=== PATIENT | female | born 1945 | race Caucasian/White ===

== ENCOUNTER 2016-11-23 13:13 | Inpatient (IN) ==
--- NOTE | 2016-11-22 21:28 | Discharge Summary ---
<Raquel Henry - Last Filed: 11/22/16 21:26> Date of Encounter: 11/22/16 - Discharge Diagnosis (1) Arthritis of knee, left Priority: Primary Status: Acute (2) HTN (hypertension) Priority: Secondary Status: Chronic Qualifiers: Hypertension type: essential hypertension Qualified Code(s): I10 - Essential (primary) hypertension - Discharge Medications Home Medications: Aspirin 81 mg PO DAILY 05/18/16 [History] Calcium/Magnesium/Vit D3 [Calcium 500 mg Tablet] 1 each PO DAILY 05/18/16 [ History] Cholecalciferol (D-3) [Vitamin D] 1,000 unit PO DAILY 05/18/16 [History] Irbesartan [Avapro] 150 mg PO DAILY 05/18/16 [History] Aspirin Enteric Coated [Aspirin EC] 325 mg PO DAILY #21 tablet.dr 11/22/16 [Rx] OxyCODONE Immed Rel [Roxicodone 5 MG] 5 - 10 mg PO Q6HR PRN #40 tablet 11/22/16 [Rx] Hydrochlorothiazide 25 mg PO DAILY 11/23/16 [History] Multivits Min/Iron/FA/Herb#186 [Hair, Skin and Nails Caplet] 1 each PO DAILY [History] Allergies/Adverse Reactions: Allergies nitrofurantoin [From Macrobid] Adverse Reaction (Verified 11/23/16 14:07) Vomiting rofecoxib [From Vioxx] Adverse Reaction (Verified 11/23/16 14:07) Nausea Primary care physician: Joe Gaona Jr, MD - Patient Status Disposition: Transfer Inpatient Rehab Fac Condition: Good - Discharge Instructions Follow Up With: Elijah Nails MD [Partnered Physician] - 12/22/16 10:05 am Raquel Henry, PAC [Physician Clinical Informatics Physician] - 12/03/16 11:15 am Joe Gaona Jr, MD [Primary Care Provider] - Additional Instructions: Discharge Instructions: Total Knee Replacement Please call [facility] ([phone]), your Primary Care Physician, or report to the Emergency Room if you have any of the following symptoms: Nausea, vomiting, fever greater that 101.5, swelling, chest pain, shortness of breath, increased pain/redness/drainage/odor for your incision site, numbness/ tingling, or any other concerning symptoms. ACTIVITY:Weight-bearing as tolerated. You may progress off support (crutches or walker) as tolerated. MEDICATIONS: Upon discharge resume your home medications. Take all the medications as prescribed. Take a stool softener if taking narcotic pain medications. Stool softeners are only effective if you drink enough fluids. Drink 6-8 glass of water or fluids a day, unless this is not allowed for another health problem. Despite using stool softeners, if you haven't had a bowel movement in 3 days, please switch to a gentle laxative. Gentle laxatives are sold over the counter. You should have a bowel movement within 24 hours, if not call the office. You will be discharged from the hospital with a prescription for pain medication. You are encouraged to decrease the use of narcotic pain medication as tolerated. Should you require a refill, please call the office. [facility] prescribes narcotic pain medication for only 4-6 weeks after surgery. If you require pain medication beyond this time period, you may be referred to your Primary Care Physician or to the Pain Clinic for further evaluation. Plan ahead for refills on pain medication as many narcotics either need to be picked up at the office or mailed. It is best to call 48-72 hours in advance of needing a prescription refill so you don't run out of medication. To help control the post-operative pain, you may take NSAIDs (Aleve,Advil, Motrin, Ibuprofen, Naprosyn) or Tylenol as prescribed on the bottle in addition to the pain medication. ANTICOAGULATION (blood thinners): Continue your Aspirin, Lovenox or Coumadin as prescribed to help prevent a blood clot in the leg or in the lungs. As long as your incision remains dry and you tolerate the NSAIDs (Aleve, Advil, Motrin, ibuprofen, naprosyn), it is OK to use the NSAIDS while you are taking your anticoagulation medication. Should your incision start to drain, stop the NSAID and contact our office. Common symptoms of blood clot in the legs include: localized pain, swelling, calf tenderness, redness or discoloration of the skin. Blood clot in the lung symptoms include: shortness of breath, rapid pulse, sweating, and chest pain that worsens with deep breathing, coughing up blood, lightheadedness, feelings of anxiety. If you experience any of these symptoms notify your physician immediately, go to the emergency room, or if having trouble breathing, call 911. WOUND CARE: Leave the dressing on for 7 to 10days. You may change the dressing if it becomes saturated greater than 50%. Do not get the dressing wet at anytime. Wash your hands with antibacterial soap, rinse and dry prior to any wound care. If you have teto the visiting nurse or rehab facility can remove the stapes 10-14 days after surgery and place steri-strips across the wound. Leave the steri-strips in place until they fall off on their won. You may let water from the shower run on top of the steri-strips. If you do not have a visiting nurse or rehab facility, you will need to return to the office at 10-14 days for the teto to be removed. If you have itching or redness around the dressing call the office. FOLLOW-UP: Please follow up with your surgeon in the orthopedic clinic in 4 weeks from the day of surgery. If you have teto that need to be removed, you will need to come back to the office in 10-14 days from the day of surgery. - Hospital Course Hospital course: Ms. Baez is a 71 year old female - Time Spent with Patient Total time spent providing and/or coordinating discharge services: <Elijah Nails - Last Filed: 11/26/16 07:44> Date of Encounter: 11/26/16 Time of Encounter: 07:43 - Discharge Diagnosis (1) HTN (hypertension) Priority: Secondary Status: Chronic Qualifiers: Hypertension type: essential hypertension Qualified Code(s): I10 - Essential (primary) hypertension (2) Acute blood loss anemia Priority: Primary Status: Acute (3) Arthritis of right knee Priority: Primary Status: Acute Primary care physician: Joe Gaona Jr, MD - Patient Status Functional capacity at discharge: uses cane/walker Overall status at discharge: patient is progressing back to baseline - Hospital Course Hospital course: Ms. Baez is a 71 year old female The patient had an uneventful postoperative course. They received antibiotics and physical therapy and were discharged in stable condition. There will follow -up in the office in 2 weeks. Aspirin DVT prophylaxis - Time Spent with Patient Total time spent providing and/or coordinating discharge services:
[2016-11-23] MEDS ORDERED: CeFAZolin Pre 2,000 MG/100 ML 2,000 MG/100 ML BAG IVPB ONE (13:35)
[2016-11-23] MEDS ORDERED: Lidocaine -MPF 1% 2 ML VIAL ID ONE (13:35)
[2016-11-23] MEDS ORDERED: Ringers Solution, Lactated 1,000 ML IVC SCH ×2 (13:45→18:24)
[2016-11-23] MEDS ORDERED: Gabapentin 300 MG CAPSULE PO ONE (14:00)
[2016-11-23] MEDS ORDERED: Famotidine 20 MG/2 ML VIAL IVP ONE (14:00)
--- NOTE | 2016-11-23 14:08 | History & Physical Report ---
Date of Encounter: 11/23/16 Time of Encounter: 14:07 24 Hour HP Update - Instructions Instructions: If the History and Physical is less than 30 days old and was completed prior to A.M. admission and or procedure and has NOT been updated on calendar day of procedure please complete this update prior to performing procedure. - Update Patient reports changes in Medical Condition: No Changes in examination, assessment, or condition: No Changes in Medication: No Preop tests/diagnostics Reviewed: Yes Surgery Remains Indicated: Yes Consent for Planned Operative Procedure(s) Verified: Yes - Pre-Operative Checklist Preoperative Checklist Indicated: No Prophylactic Antibiotic Ordered: Yes Is VTE Prophylaxis Indicated?: Yes
[2016-11-23] MEDS ORDERED: *HR* Midazolam HCl 2 MG/2 ML VIAL ONE (14:23)
[2016-11-23] MEDS ORDERED: *HR* FentaNYL (PF) 100 MCG/2 ML VIAL ONE (14:23)
[2016-11-23] MEDS ORDERED: *HR* Propofol 200 MG/20 ML VIAL IVP ONE (14:23)
[2016-11-23] MEDS ORDERED: Lidocaine -MPF 2% 2 ML VIAL ONE (14:24)
--- NOTE | 2016-11-23 14:37 | Anesthesia Evaluation PreOp ---
Date of Encounter: 11/23/16 Time of Encounter: 14:30 - Past History Planned Operation: Rt Total Knee Replacement Cardiac History: HTN, Hyperlipidemia Pulmonary History: Denies Any Significant HX INFORMATION SYSTEMS ADMINISTRATOR History: Denies Any Significant HX Other Medical History: Denies Any Significant HX Anesthesia History: No Prior Anesthetic Complications Alcohol Use: none Drug use: none Medications and Allergies Aspirin 81 mg PO DAILY 05/18/16 [History] Calcium/Magnesium/Vit D3 [Calcium 500 mg Tablet] 1 each PO DAILY 05/18/16 [ History] Cholecalciferol (D-3) [Vitamin D] 1,000 unit PO DAILY 05/18/16 [History] Irbesartan [Avapro] 150 mg PO DAILY 05/18/16 [History] Aspirin Enteric Coated [Aspirin EC] 325 mg PO DAILY #21 tablet. 11/22/16 [Rx] OxyCODONE Immed Rel [Roxicodone 5 MG] 5 - 10 mg PO Q6HR PRN #40 tablet 11/22/16 [Rx] Hydrochlorothiazide 25 mg PO DAILY 11/23/16 [History] Multivits Min/Iron/FA/Herb#186 [Hair, Skin & Nails Caplet] 1 each PO DAILY 11/23 [History] Allergies nitrofurantoin [From Macrobid] Adverse Reaction (Verified 11/23/16 14:07) Vomiting rofecoxib [From Vioxx] Adverse Reaction (Verified 11/23/16 14:07) Nausea - Meds/Allergy Pre-op Review Medications Reviewed: Yes Allergies Reviewed: Yes Beta Blockers on Current Med List: No Anesthesia Results - Labs Laboratory Tests 11/09/16 11/09/16 12:35 12:35 Hgb 13.7 Hct 40.1 Plt Count 298 Sodium 137 Potassium 3.8 BUN 14 Creatinine 0.72 - Imaging EKG: report reviewed (SR) Anesthesia Exam O2 Sat Height 1.6 m Height 1.6 m Height 1.6 m Weight 78.131 kg Weight 78.131 kg Weight 78.131 kg O2 Sat by Pulse Oximetry 97 Vital Signs Temp Pulse Resp BP Pulse Ox 98.0 F 69 18 163/71 97 11/23/16 13:30 11/23/16 13:30 11/23/16 13:30 11/23/16 13:30 11/23/16 13:30 Height: 5'3 Weight: 172 lbs NPO (# of Hours): MN Pain Scale: 0 - HEENT Pupil (Motor): Pupils equal, EOMI Mallampati: II Teeth: Normal Oral Opening: Greater than 3 - INFORMATION SYSTEMS ADMINISTRATOR LOC: Oriented INFORMATION SYSTEMS ADMINISTRATOR Motor: Normal RUE, Normal LUE, Normal RLE, Normal LLE, Normal Face INFORMATION SYSTEMS ADMINISTRATOR Sensory: Normal: RUE, LUE, RLE, LLE, Face - Cardiac Rhythm: Regular Murmur: None JVD: No Carotid Bruit: No - Pulmonary Breath Sounds: bilateral Clear Respiratory Effort: Symmetrical Anesthesia Assess/Plan ASA Score: 2 Modified Eden Scale for Level of Consciousness: Cooperative, oriented, and tranquil Anesthetic Plan: General, Regional Monitoring Plan: Standard Monitors Recovery Plan: PACU (Discussed GA and RA, agrees to proceed)
[2016-11-23] MEDS ORDERED: Tetracaine/PF 20 MG/2 ML AMPUL ONE (15:11)
[2016-11-23] MEDS ORDERED: ROPIVACAINE HCL/PF 0.5% 30 ML VIAL ONE (15:11)
[2016-11-23] MEDS ORDERED: Bupivacaine/Clonidine Syringe 1 EACH SYRINGE ONE (15:12)
--- NOTE | 2016-11-23 15:28 | Anesthesia Procedures ---
Date of Encounter: 11/23/16 Time of Encounter: 14:35 Procedures: Anesthesia - Nerve Block Procedure Date: 11/23/16 Time: 15:15 Pre-op Diagnosis: Rt Knee Arthropathy Surgical Procedure: Rt TKA Checklist: Correct Patient Identifier Correct side: Right Blood Thinner: No Monitor Applied: EKG, BP, Pulse Oximetry Supplemental Oxygen via Nasal Cannula (L/min): 2 Sedation: Versed (mg): 2 Sedation: Fentanyl (mcg): 100 Indication: Post Op Analgesia Pre-op Neuro Deficits: No Block Type: Femoral Catheter placed: No Depth at skin (cm): 3 Sterile Technique: Yes Ultrasound used: Yes Anatomy identified: Yes Visual spread of Local: Yes Neuro Stimulation: Yes Nerve Stimulator Range: >0.4 - 0.6 mA Blood on Needle Aspiration: No Smooth Injection of Local: Yes Pain with Injection of Local: No Prep: Chlorhexadine Needle: 22 x 50 mm Stimuplex Local: Tetracaine (40), Ropivacaine (0.5%) Volume (cc): 30 Number of Attempts: 1 Complications: None/effective block Vitals: Vital Signs/O2 Sat/Glucose, Most Current Temp Pulse Resp BP Pulse Ox 11/23/16 15:21 74 18 140/56 97 11/23/16 13:30 98.0 F 69 18 163/71 97
--- NOTE | 2016-11-23 15:42 | Orthopedic Operative Note ---
Date of procedure: 11/23/16 Pre-op diagnosis: Right knee arthritis Post-op diagnosis: same Procedure: Procedure: Right Total knee replacement Estimated blood loss: 200 cc Hardware: Arthrex Femur: 5 Tibia: 3 PS insert: 8 Patella: 34 Exam Under anesthesia: Full flexion full extension no instability Procedural Notes: Grade 3 arthritic changes medial compartment patellofemoral joint. Operative procedure: The patient was brought to the operating room and placed on the operating room table. After general anesthesia was administered the operative knee was examined. Findings were noted in the exam under anesthesia. The operative extremity was prepped and draped in sterile surgical fashion. The patient received IV antibiotics prior to skin incision. A standard midline incision was made centered over the patella. The incision was made through the skin and subcutaneous tissue. A medial parapatellar tendon approach was performed. Care was taken to preserve tissue along the medial aspect of the patella. And to protect the patella tendon. The deep MCL was released off the medial tibia. The infra patella fat pad was excised. Knee was brought into flexion. Patient noted to have grade 3 arthritic changes medial compartment and patellofemoral joint. The entry hole was made for the intramedullary femoral guide. The guide was seated in 6 degrees of valgus. Anterior cut was made followed by the distal cut. The ACL the PCL the medial and the lateral menisci were excised. The tibia was subluxed forward. The entry hole was made for the intramedullary tibial guide. Guide was seated to resect 2 mm off the more abnormal side. The knee was brought into flexion the distal femur was sized to a 5. The femoral guide was seated, the anterior cut was made followed by the posterior condylar cut, followed by the chamfer cuts. The finishing guide was seated the box cut was made and the lug holes were drilled. The tibia was sized to a 4, the tibial tray was seated and prepared with the large drill followed by the fin cutter. Trial reduction revealed full extension no varus valgus instability with the appropriate 8 PS Michelle. The patella was everted and cut was made at the level of the insertion of the quadriceps and patella tendon. The patella was sized to a 34 the guide was seated and the lug holes are drilled. Trial reduction revealed excellent patella tracking. All trial components were removed all bony surfaces were irrigated. The tibia was cemented first followed by the femur. The 8 PS Michelle was seated and the knee was brought into full extension. The patella was cemented and held in place with the patellar holding clamp. After the cement had hardened, the knee sat for 2 minutes with a Betadine saline solution. The knee was then irrigated out with 2 L of pulse irrigation. The extensor mechanism was closed with #2 FiberWire suture and #2 PDS suture. The subcutaneous tissue was then irrigated and closed deep with #1 PDS suture superficially with 0 PDS suture and skin was closed with skin teto. The patient was then placed in a sterile dressing and a postoperative brace extubated and transferred to recovery room in stable condition. Anesthesia: REBECCA Surgeon: Elijah Nails Pulling Unit Floorhand: Raquel Henry Condition: stable Disposition: PACU
[2016-11-23] MEDS ORDERED: Ondansetron 4 MG/2 ML VIAL ONE (15:57)
[2016-11-23] MEDS ORDERED: *HR* Morphine 10 MG/ML VIAL ONE (16:02)
--- NOTE | 2016-11-23 16:26 | Orthopedic Operative Note ---
Date of procedure: 11/23/16 Pre-op diagnosis: Right knee arthritis Post-op diagnosis: same Procedure: Procedure: Right Total knee replacement Estimated blood loss: 200 cc Hardware: Arthrex Femur: 5 Tibia: 3 PS insert: 11 Patella 34 Exam Under anesthesia: Full flexion full extension valgus alignment Procedural Notes: Grade 4 arthritic changes lateral compartment grade 3 arthritic changes patellofemoral joint Operative procedure: The patient was brought to the operating room and placed on the operating room table. After general anesthesia was administered the operative knee was examined. Findings were noted in the exam under anesthesia. The operative extremity was prepped and draped in sterile surgical fashion. The patient received IV antibiotics prior to skin incision. A standard midline incision was made centered over the patella. The incision was made through the skin and subcutaneous tissue. A medial parapatellar tendon approach was performed. Care was taken to preserve tissue along the medial aspect of the patella. And to protect the patella tendon. The deep MCL was released off the medial tibia. The infra patella fat pad was excised. Knee was brought into flexion. Patient noted to have grade 4 changes lateral compartment grade 3 arthritic changes patellofemoral joint. The entry hole was made for the intramedullary femoral guide. The guide was seated in 6 degrees of valgus. Anterior cut was made followed by the distal cut. The ACL the PCL the medial and the lateral menisci were excised. The tibia was subluxed forward. The entry hole was made for the intramedullary tibial guide. Guide was seated to resect 2 mm off the more abnormal side. The knee was brought into flexion the distal femur was sized to a 5. The femoral guide was seated, the anterior cut was made followed by the posterior condylar cut, followed by the chamfer cuts. The finishing guide was seated the box cut was made and the lug holes were drilled. The tibia was sized to a 4, the tibial tray was seated and prepared with the large drill followed by the fin cutter. Trial reduction revealed full extension no varus valgus instability with the appropriate 11 PS Michelle. The patella was everted and cut was made at the level of the insertion of the quadriceps and patella tendon. The patella was sized to a 34 the guide was seated and the lug holes are drilled. Trial reduction revealed excellent patella tracking. All trial components were removed all bony surfaces were irrigated. The tibia was cemented first followed by the femur. The 11 PS Michelle was seated and the knee was brought into full extension. The patella was cemented and held in place with the patellar holding clamp. After the cement had hardened, the knee sat for 2 minutes with a Betadine saline solution. The knee was then irrigated out with 2 L of pulse irrigation. The extensor mechanism was closed with #2 FiberWire suture and #2 PDS suture. The subcutaneous tissue was then irrigated and closed deep with #1 PDS suture superficially with 0 PDS suture and skin was closed with skin teto. The patient was then placed in a sterile dressing and a postoperative brace extubated and transferred to recovery room in stable condition. Anesthesia: GETCarlos Surgeon: Elijah Nails Condition: stable Disposition: PACU
[2016-11-23] MEDS: *HR* Morphine 2 MG/ML SYRINGE IVP PRN ×3 (17:05→17:22)
[2016-11-23 17:21] LABS: Hematocrit 34.3 % (35.3-44.9); Hemoglobin 11.5 g/dL (11.5-15.4)
[2016-11-23] MEDS ORDERED: Ketorolac 30 MG/ML VIAL IVP ONE (17:35)
--- NOTE | 2016-11-23 17:56 | Anesthesia Evaluation Post Op ---
Date of Encounter: 11/23/16 Time of Encounter: 17:53 - Vital Signs Vital Signs: Vital Signs/O2 Sat/Glucose, Most Recent Temp Pulse Resp BP Pulse Ox 97.4 F L 58 8 129/63 99 11/23/16 17:25 11/23/16 17:45 11/23/16 17:45 11/23/16 17:45 11/23/16 17:45 - Lungs Lungs: Clear Ascult./Percussion - Airway Airway: Non-obstructed - Cardiovascular Regular Rate - Mental Status Mental Status: Alert & Oriented, Answers Appropriately, Asleep with brisk response to light stimulation - Pain Pain Scale: 5 (states she is having pain, falls asleep without verbal stimulation) Pain Scale used: Numeric (1 - 10) - Nausea Vomiting Nausea Vomiting: Not Present - Hydration Hydration: NPO - Discharge PostOp Status: Transfer Patient to floor
[2016-11-23] MEDS ORDERED: *HR* Enoxaparin 30 MG/0.3 ML SYRINGE SQ SCH (18:00)
[2016-11-23] MEDS ORDERED: Temazepam 15 MG CAPSULE PO PRN (18:24)
[2016-11-23] MEDS ORDERED: *HR* HYDROmorphone (PF) 1 MG/ML SYRINGE IVP PRN (18:24)
[2016-11-23] MEDS ORDERED: Sennosides 8.6 MG TABLET PO PRN (18:24)
[2016-11-23] MEDS ORDERED: Acetaminophen 325 MG TABLET PO PRN (18:24)
[2016-11-23] MEDS ORDERED: Ondansetron 4 MG/2 ML VIAL IVP PRN (18:24)
[2016-11-23] MEDS ORDERED: *HR* OxyCODONE Immed Rel 5 MG TABLET PO PRN (18:24)
[2016-11-23] MEDS ORDERED: Naloxone 0.4 MG/ML INJ IVP PRN (18:24)
[2016-11-23] MEDS ORDERED: MOM Conc 10 ML UD.LIQ PO PRN (18:24)
[2016-11-23] MEDS: ceFAZolin 2,000 MG in D5% in Water 100 ML IVPB SCH (19:43)
[2016-11-23] MEDS: *HR* OxyCODONE Immed Rel 5 MG TABLET PO PRN (21:09)
[2016-11-24] MEDS: ceFAZolin 2,000 MG in D5% in Water 100 ML IVPB SCH (02:52)
[2016-11-24 05:14] LABS: Hematocrit 32.1 % (35.3-44.9); Hemoglobin 10.7 g/dL (11.5-15.4)
[2016-11-24 05:34] LABS: BUN/Creatinine Ratio 24 (6-26); Blood Urea Nitrogen 18 mg/dL (7-20); Calcium 8.5 mg/dL (8.6-10.8); Carbon Dioxide 26 mEq/L (19-29); Chloride 104 mEq/L (98-109); Glucose 149 mg/dL (70-99); Osmolality,Calculated 291 (280-300); Potassium 3.8 mEq/L (3.5-4.5); Sodium 138 mEq/L (136-145); eGFR For African Americans > 60 (> 60); eGFR For Non-African Americans > 60 (> 60)
[2016-11-24] MEDS: *HR* Enoxaparin 30 MG/0.3 ML SYRINGE SQ SCH ×2 (05:42→16:36)
--- NOTE | 2016-11-24 06:21 | Orthopedics Progress Note ---
Date of Encounter: 11/24/16 Time of Encounter: 06:21 - Assessment and Plan (1) Arthritis of knee, left Current Visit: Yes Status: Acute (2) HTN (hypertension) Current Visit: Yes Status: Chronic Qualifiers: Hypertension type: essential hypertension Qualified Code(s): I10 - Essential (primary) hypertension Subjective Interval history: Patient was seen this morning doing well without complaints. Afebrile vital signs stable. Operative extremity: Neurovascularly intact Dressing clean dry and intact Calves nontender Assessment and plan: Continue with postoperative care Hematocrit 32 Objective Vital signs: Vital Signs Temp Pulse Resp BP Pulse Ox 11/24/16 03:56 98.3 F 93 19 123/74 98 11/24/16 00:02 98 F 80 14 120/70 97 11/23/16 21:05 97.8 F 66 14 114/67 100 11/23/16 20:00 97.7 F 62 12 134/75 11/23/16 18:59 97.4 F L 55 14 130/67 97 11/23/16 18:30 97.8 F 54 14 118/66 99 11/23/16 18:00 97.6 F 54 14 115/62 97 11/23/16 17:55 97.9 F 62 10 129/62 98 11/23/16 17:45 58 8 129/63 99 11/23/16 17:35 54 8 122/68 100 11/23/16 17:25 97.4 F L 58 12 118/65 98 11/23/16 17:15 58 14 115/61 100 11/23/16 17:05 71 16 139/95 99 11/23/16 16:55 98.2 F 79 16 144/74 99 11/23/16 15:21 74 18 140/56 97 11/23/16 13:30 98.0 F 69 18 163/71 97 Intake and Output 11/23/16 11/23/16 11/24/16 15:59 23:59 07:59 Intake Total 1100 / 1100 100 / 100 Output Total 300 / 300 Balance 800 / 800 100 / 100 Intake: IV Fluids 1100 / 1100 100 / 100 Lactated Ringers 1,000 ML 1000 / 1000 @ 25 mls/hr IVC .Q24H [facility] Rx#:[id number] Ancef 2,000 MG In 100 / 100 100 / 100 Dextrose 5% 100 ML @ 200 mls/hr IVPB Q8H [facility] Rx#: [id number] Output: Urine 100 / 100 Estimated Blood Loss 200 / 200 Other: Weight 78.131 kg - Labs CBC & BMP: 11/24/16 04:11 11/24/16 04:11 Labs: Abnormal lab results Hgb 10.7 g/dL (11.5-15.4) L 11/24/16 04:11 Hct 32.1 % (35.3-44.9) L 11/24/16 04:11 Glucose 149 mg/dL (70-99) H 11/24/16 04:11 Calcium 8.5 mg/dL (8.6-10.8) L 11/24/16 04:11 - VTE Documentation of Mechanical Device: Venous foot pump, device Consult Discharge Plan - Plan Referrals: Elijah Nails MD [Partnered Physician] - 12/22/16 10:05 am Raquel Henry, PAC [Physician Internal Audit Manager] - 12/03/16 11:15 am Joe Gaona Jr, MD [Primary Care Provider] -
[2016-11-24] MEDS ORDERED: *HR* OxyCODONE Immed Rel 5 MG TABLET PO PRN (06:48)
[2016-11-24] MEDS: Aspirin 81 MG TAB.CHEW PO SCH (08:33)
[2016-11-24] MEDS: CALCIUM PO SCH (08:33)
[2016-11-24] MEDS: *HR* OxyCODONE Immed Rel 5 MG TABLET PO PRN ×2 (08:33→14:13)
[2016-11-24] MEDS: Multivit/Ca/Min/Fe/FA 1 TAB TABLET PO SCH (08:33)
[2016-11-24] MEDS: hydroCHLOROthiazide 25 MG TABLET PO SCH (08:33)
[2016-11-24] MEDS: MAGNESIUM PO SCH (08:33)
[2016-11-24] MEDS: Cholecalciferol (D-3) 1,000 UNIT TABLET PO SCH (08:33)
[2016-11-24] MEDS: VIT D3 PO SCH (08:33)
[2016-11-24] MEDS ORDERED: Naloxone 0.4 MG/ML INJ IVP ONE (17:11)
[2016-11-24] MEDS ORDERED: Acetaminophen IV 1,000 MG/100 ML INFUS..BTL IVPB PRN (20:06)
[2016-11-24] MEDS: Ketorolac 30 MG/ML VIAL IVP PRN (21:29)
[2016-11-25] MEDS: *HR* OxyCODONE Immed Rel 5 MG TABLET PO PRN ×4 (01:45→19:45)
[2016-11-25 05:43] LABS: Hematocrit 27.5 % (35.3-44.9); Hemoglobin 9.4 g/dL (11.5-15.4)
[2016-11-25 05:58] LABS: BUN/Creatinine Ratio 20 (6-26); Blood Urea Nitrogen 12 mg/dL (7-20); Calcium 8.4 mg/dL (8.6-10.8); Carbon Dioxide 30 mEq/L (19-29); Chloride 102 mEq/L (98-109); Glucose 112 mg/dL (70-99); Osmolality,Calculated 283 (280-300); Potassium 3.5 mEq/L (3.5-4.5); Sodium 136 mEq/L (136-145); eGFR For African Americans > 60 (> 60); eGFR For Non-African Americans > 60 (> 60)
[2016-11-25] MEDS: Ketorolac 30 MG/ML VIAL IVP PRN (06:09)
[2016-11-25] MEDS: *HR* Enoxaparin 30 MG/0.3 ML SYRINGE SQ SCH ×2 (06:09→16:49)
--- NOTE | 2016-11-25 06:45 | Orthopedics Progress Note ---
Date of Encounter: 11/25/16 Time of Encounter: 06:45 - Assessment and Plan (1) Arthritis of knee, left Current Visit: Yes Status: Acute (2) HTN (hypertension) Current Visit: Yes Status: Chronic Qualifiers: Hypertension type: essential hypertension Qualified Code(s): I10 - Essential (primary) hypertension Subjective Interval history: Patient was seen this morning doing well without complaints. Afebrile vital signs stable. Operative extremity: Neurovascularly intact Dressing clean dry and intact Calves nontender Assessment and plan: Continue with postoperative care Hemoglobin 9.4 Objective Vital signs: Vital Signs Temp Pulse Resp BP Pulse Ox 11/25/16 06:37 98.3 F 79 16 118/71 98 11/25/16 00:47 98.4 F 77 16 114/67 98 11/24/16 20:36 98.6 F 74 16 132/74 98 11/24/16 19:35 97 11/24/16 15:20 98.5 F 83 16 138/65 96 11/24/16 10:34 98.0 F 73 18 136/78 96 11/24/16 06:48 97.9 F 76 18 109/69 Intake and Output 11/24/16 11/24/16 11/25/16 15:59 23:59 07:59 Intake Total 0 / 0 50 / 50 Output Total 200 / 200 250 / 250 Balance -200 / -200 -200 / -200 Intake: Oral 0 / 0 50 / 50 Output: Urine 200 / 200 250 / 250 Other: Meal Lunch Percent of Meal Consumed 10% - Labs CBC & BMP: 11/25/16 05:19 11/25/16 05:19 Labs: Abnormal lab results Hgb 9.4 g/dL (11.5-15.4) L 11/25/16 05:19 Hct 27.5 % (35.3-44.9) L 11/25/16 05:19 Carbon Dioxide 30 mEq/L (19-29) H 11/25/16 05:19 Glucose 112 mg/dL (70-99) H 11/25/16 05:19 Calcium 8.4 mg/dL (8.6-10.8) L 11/25/16 05:19 - VTE Documentation of Mechanical Device: Venous foot pump, device Consult Discharge Plan - Plan Referrals: lEijah Nails MD [Partnered Physician] - 12/22/16 10:05 am Raquel Henry PAC [Physician Field Artillery Operations Man] - 12/03/16 11:15 am Joe Gaona Jr, MD [Primary Care Provider] -
[2016-11-25] MEDS: Multivit/Ca/Min/Fe/FA 1 TAB TABLET PO SCH (07:52)
[2016-11-25] MEDS: CALCIUM PO SCH (07:52)
[2016-11-25] MEDS: Aspirin 81 MG TAB.CHEW PO SCH (07:52)
[2016-11-25] MEDS: MAGNESIUM PO SCH (07:52)
[2016-11-25] MEDS: VIT D3 PO SCH (07:52)
[2016-11-25] MEDS: hydroCHLOROthiazide 25 MG TABLET PO SCH (07:52)
[2016-11-25] MEDS: Cholecalciferol (D-3) 1,000 UNIT TABLET PO SCH (07:53)
[2016-11-26] MEDS: *HR* Enoxaparin 30 MG/0.3 ML SYRINGE SQ SCH (05:08)
[2016-11-26] MEDS: *HR* OxyCODONE Immed Rel 5 MG TABLET PO PRN ×2 (05:08→09:35)
[2016-11-26 06:47] VITALS: BP 121/64
--- NOTE | 2016-11-26 07:45 | Orthopedics Progress Note ---
Date of Encounter: 11/26/16 Time of Encounter: 07:44 - Assessment and Plan (1) HTN (hypertension) Current Visit: Yes Status: Chronic Qualifiers: Hypertension type: essential hypertension Qualified Code(s): I10 - Essential (primary) hypertension (2) Acute blood loss anemia Current Visit: Yes Status: Acute (3) Arthritis of right knee Current Visit: Yes Status: Acute Subjective Interval history: Patient was seen this morning doing well without complaints. Afebrile vital signs stable. Operative extremity: Neurovascularly intact Dressing clean dry and intact Calves nontender Assessment and plan: Continue with postoperative care Discharged today Objective Vital signs: Vital Signs Temp Pulse Resp BP Pulse Ox 11/26/16 06:40 98.3 F 81 16 121/64 96 11/26/16 00:00 98.6 F 87 17 117/68 95 11/25/16 22:00 95 11/25/16 20:00 98.7 F 92 17 136/57 95 11/25/16 15:55 98.1 F 75 16 108/59 94 11/25/16 12:09 98.2 F 70 16 115/62 100 Intake and Output 11/25/16 11/25/16 11/26/16 15:59 23:59 07:59 Intake Total 250 / 250 250 / 250 Output Total 300 / 300 300 / 300 Balance -50 / -50 -50 / -50 Intake: Oral 250 / 250 250 / 250 Output: Urine 300 / 300 300 / 300 Other: Meal Breakfast Percent of Meal Consumed 50% - Labs CBC & BMP: 11/25/16 05:19 11/25/16 05:19 Labs: Abnormal lab results Hgb 9.4 g/dL (11.5-15.4) L 11/25/16 05:19 Hct 27.5 % (35.3-44.9) L 11/25/16 05:19 Carbon Dioxide 30 mEq/L (19-29) H 11/25/16 05:19 Glucose 112 mg/dL (70-99) H 11/25/16 05:19 Calcium 8.4 mg/dL (8.6-10.8) L 11/25/16 05:19 - VTE Documentation of Mechanical Device: Venous foot pump, device Consult Discharge Plan - Plan Additional Instructions: Discharge Instructions: Total Knee Replacement Please call [facility] ([phone]), your Primary Care Physician, or report to the Emergency Room if you have any of the following symptoms: Nausea, vomiting, fever greater that 101.5, swelling, chest pain, shortness of breath, increased pain/redness/drainage/odor for your incision site, numbness/ tingling, or any other concerning symptoms. ACTIVITY:Weight-bearing as tolerated. You may progress off support (crutches or walker) as tolerated. MEDICATIONS: Upon discharge resume your home medications. Take all the medications as prescribed. Take a stool softener if taking narcotic pain medications. Stool softeners are only effective if you drink enough fluids. Drink 6-8 glass of water or fluids a day, unless this is not allowed for another health problem. Despite using stool softeners, if you haven't had a bowel movement in 3 days, please switch to a gentle laxative. Gentle laxatives are sold over the counter. You should have a bowel movement within 24 hours, if not call the office. You will be discharged from the hospital with a prescription for pain medication. You are encouraged to decrease the use of narcotic pain medication as tolerated. Should you require a refill, please call the office. [facility] prescribes narcotic pain medication for only 4-6 weeks after surgery. If you require pain medication beyond this time period, you may be referred to your Primary Care Physician or to the Pain Clinic for further evaluation. Plan ahead for refills on pain medication as many narcotics either need to be picked up at the office or mailed. It is best to call 48-72 hours in advance of needing a prescription refill so you don't run out of medication. To help control the post-operative pain, you may take NSAIDs (Aleve,Advil, Motrin, Ibuprofen, Naprosyn) or Tylenol as prescribed on the bottle in addition to the pain medication. ANTICOAGULATION (blood thinners): Continue your Aspirin, Lovenox or Coumadin as prescribed to help prevent a blood clot in the leg or in the lungs. As long as your incision remains dry and you tolerate the NSAIDs (Aleve, Advil, Motrin, ibuprofen, naprosyn), it is OK to use the NSAIDS while you are taking your anticoagulation medication. Should your incision start to drain, stop the NSAID and contact our office. Common symptoms of blood clot in the legs include: localized pain, swelling, calf tenderness, redness or discoloration of the skin. Blood clot in the lung symptoms include: shortness of breath, rapid pulse, sweating, and chest pain that worsens with deep breathing, coughing up blood, lightheadedness, feelings of anxiety. If you experience any of these symptoms notify your physician immediately, go to the emergency room, or if having trouble breathing, call 911. WOUND CARE: Leave the dressing on for 7 to 10days. You may change the dressing if it becomes saturated greater than 50%. Do not get the dressing wet at anytime. Wash your hands with antibacterial soap, rinse and dry prior to any wound care. If you have teto the visiting nurse or rehab facility can remove the stapes 10-14 days after surgery and place steri-strips across the wound. Leave the steri-strips in place until they fall off on their won. You may let water from the shower run on top of the steri-strips. If you do not have a visiting nurse or rehab facility, you will need to return to the office at 10-14 days for the teto to be removed. If you have itching or redness around the dressing call the office. FOLLOW-UP: Please follow up with your surgeon in the orthopedic clinic in 4 weeks from the day of surgery. If you have teto that need to be removed, you will need to come back to the office in 10-14 days from the day of surgery. Referrals: Elijah Nails MD [Partnered Physician] - 12/22/16 10:05 am Raquel Henry PAC [Physician Family [employer] Consumer Sciences Teacher] - 12/03/16 11:15 am Joe Gaona Jr, MD [Primary Care Provider] -
[2016-11-26] MEDS: Multivit/Ca/Min/Fe/FA 1 TAB TABLET PO SCH (08:24)
[2016-11-26] MEDS: Aspirin 81 MG TAB.CHEW PO SCH (08:24)
[2016-11-26] MEDS: Cholecalciferol (D-3) 1,000 UNIT TABLET PO SCH (08:24)
[2016-11-26] MEDS: hydroCHLOROthiazide 25 MG TABLET PO SCH (08:25)
[2016-11-26] MEDS: MAGNESIUM PO SCH (08:25)
[2016-11-26] MEDS: CALCIUM PO SCH (08:25)
[2016-11-26] MEDS: VIT D3 PO SCH (08:25)
== END 2016-11-26 12:01 | DRG 470 ==
LOC: SAMDAY 13:13 → 3NENU 18:21
PROVIDERS: ADMIT Orthopaedic Surgery; ATTEND Orthopaedic Surgery

== ENCOUNTER 2022-05-26 15:22 | Observation (INO) ==
[2022-05-26 17:59] LABS: Immature Granulocytes % 0.5 % (0-4)
[2022-05-26 18:00] LABS: Basophils % 0.5 %; Hematocrit 37.6 % (35.3-44.9); Hemoglobin 13.6 g/dL (11.5-15.4); Lymphocytes # 0.5 K/mcL (0.6-4.6); Lymphocytes % 23.7 %; Mean Corpuscular HGB Conc 36.2 g/dL (31.6-35.5); Mean Corpuscular Hemoglobin 31.4 pg (28.0-33.3); Mean Corpuscular Volume 86.8 fL (83.0-100.0); Mean Platelet Volume 8.9 fL (9.4-12.4); Monocytes # 0.2 K/mcL (0.0-1.3); Neutrophils # 1.2 K/mcL (1.6-8.9); Platelet Count 181 K/mcL (140-400); Red Blood Count 4.33 M/mcL (3.82-4.97); Segmented Neutrophils % 65.3 %; White Blood Count 1.9 K/mcL (4.3-11.1)
[2022-05-26] MEDS ORDERED: 0.9 % Sodium Chloride 1,000 ML IV ONE ×2 (18:04→20:23)
[2022-05-26] MEDS ORDERED: Albuterol 2.5 MG/3 ML NEBULIZER IH ONE (18:05)
[2022-05-26 18:09] LABS: ABG Base Excess 0 mEq/L (-2 to 3); ABG HCO3 24 mEq/L (21-27); ABG Oxygen Saturation 96 % (95-98); ABG PCO2 34 mmHg (35-45); ABG PH 7.45 pH Units (7.32-7.45); ABG PO2 77 mmHg (85-104); ABG TCO2 25 mEq/L (20-26)
[2022-05-26 18:14] LABS: Platelet Estimate Normal (Normal)
[2022-05-26 18:20] LABS: Prothrombin Time 11.2 Seconds (9.4-12.1)
[2022-05-26 18:27] LABS: Alanine Aminotransferase 31 Units/L (7-52); Albumin 4.1 g/dL (3.5-5.7); Albumin/Globulin Ratio 1.5 (1.1-2.2); Alkaline Phosphatase 91 Units/L (34-104); Aspartate Amino Transferase 38 Units/L (13-39); BUN/Creatinine Ratio 22 (6-26); Bilirubin,Direct 0.1 mg/dL (0.0-0.2); Bilirubin,Indirect 0.5 mg/dL (0.0-1.0); Bilirubin,Total 0.6 mg/dL (0.3-1.0); Blood Urea Nitrogen 17 mg/dL (8-23); Calcium 8.5 mg/dL (8.6-10.3); Carbon Dioxide 27 mEq/L (23-29); Chloride 90 mEq/L (98-107); Globulin 2.7 g/dL (2.4-3.5); Glucose 103 mg/dL (70-105); Osmolality,Calculated 268 (280-300); Potassium 2.8 mEq/L (3.5-5.1); Sodium 128 mEq/L (136-145); Total Protein 6.8 g/dL (6.4-8.9); Troponin I < 0.03 ng/mL (< 0.04)
[2022-05-26] MEDS ORDERED: Acetaminophen 325 MG TABLET PO ONE (20:20)
[2022-05-26] MEDS ORDERED: Ondansetron 4 MG/2 ML VIAL IVP STA (20:20)
[2022-05-26] MEDS ORDERED: Iopamidol - 370 500 ML MLS IVP ONE (20:22)
[2022-05-26 23:26] LABS: C-Reactive Protein < 5 mg/L (Less than 10)
[2022-05-26 23:45] LABS: Ferritin 199 ng/mL (10-120)
[2022-05-27] MEDS ORDERED: Melatonin 3 MG TABLET PO PRN (00:32)
[2022-05-27] MEDS ORDERED: Naloxone 0.4 MG/ML INJ IVP PRN (00:32)
[2022-05-27] MEDS ORDERED: D5% in Water 1,000 ML IVC PRN (00:32)
[2022-05-27] MEDS ORDERED: *HR* Dextrose 50 % in Water (Syg) 50 ML SYRINGE IVP PRN (00:32)
[2022-05-27] MEDS ORDERED: Dextrose Gel 15 GM/37.5 ML TUBE PO PRN ×2 (00:32)
[2022-05-27] MEDS ORDERED: *HR* Enoxaparin 80 MG/0.8 ML SYRINGE SQ SCH (03:15)
[2022-05-27] MEDS ORDERED: 0.9 % Sodium Chloride 1,000 ML IV ONE (03:18)
[2022-05-27 04:10] LABS: BUN/Creatinine Ratio 18 (6-26); Blood Urea Nitrogen 11 mg/dL (8-23); Calcium 7.9 mg/dL (8.6-10.3); Carbon Dioxide 24 mEq/L (23-29); Chloride 101 mEq/L (98-107); Glucose 80 mg/dL (70-105); Magnesium 1.8 mg/dL (1.6-2.6); Osmolality,Calculated 274 (280-300); Phosphorous 2.2 mg/dL (2.7-4.5); Potassium 2.8 mEq/L (3.5-5.1); Sodium 133 mEq/L (136-145)
[2022-05-27 04:22] LABS: Thyroid Stimulating Hormone 1.091 mcIU/mL (0.340-5.600)
[2022-05-27] MEDS: *HR* Enoxaparin 40 MG/0.4 ML SYRINGE SQ SCH (06:27)
[2022-05-28 04:08] LABS: Basophils % 0.5 %; Eosinophils % 0.5 %; Immature Granulocytes % 0.5 % (0-4)
[2022-05-28 04:10] LABS: Hematocrit 31.9 % (35.3-44.9); Hemoglobin 10.9 g/dL (11.5-15.4); Immature Platelets 2.3 % (1.1-6.1); Lymphocytes # 0.6 K/mcL (0.6-4.6); Lymphocytes % 31.6 %; Mean Corpuscular HGB Conc 34.2 g/dL (31.6-35.5); Mean Corpuscular Hemoglobin 31.2 pg (28.0-33.3); Mean Corpuscular Volume 91.4 fL (83.0-100.0); Mean Platelet Volume 9.2 fL (9.4-12.4); Monocytes # 0.2 K/mcL (0.0-1.3); Monocytes % 11.2 %; Neutrophils # 1.1 K/mcL (1.6-8.9); Platelet Count 151 K/mcL (140-400); Red Blood Count 3.49 M/mcL (3.82-4.97); Red Cell Distribution Width 12.4 % (11.5-14.5); Segmented Neutrophils % 55.7 %
[2022-05-28 04:27] LABS: BUN/Creatinine Ratio 12 (6-26); Blood Urea Nitrogen 6 mg/dL (8-23); Calcium 7.9 mg/dL (8.6-10.3); Carbon Dioxide 27 mEq/L (23-29); Chloride 104 mEq/L (98-107); Glucose 82 mg/dL (70-105); Osmolality,Calculated 275 (280-300); Sodium 134 mEq/L (136-145)
[2022-05-28] MEDS: *HR* Enoxaparin 40 MG/0.4 ML SYRINGE SQ SCH (05:03)
[2022-05-28 05:13] LABS: Platelet Estimate Normal (Normal)
[2022-05-28 06:27] VITALS: PULSE 70; O2SAT 93
[2022-05-28 11:17] VITALS: BP 131/63; TEMP 98.4
== END 2022-05-28 13:36 | disposition home or self-care (01) ==
LOC: 3BNU 15:22 → EMEROOARM 15:22 → SUATTDRO 05-27 00:58 → 3BNU 05-27 01:32
PROVIDERS: ADMIT Internal Medicine; ATTEND Registered Nurse